=== PATIENT | male | born 1970 | race Caucasian/White ===

== ENCOUNTER 2017-08-15 06:34 | Emergency (ER) | payer OTHER ==
[~2017-08-15] VITALS: Ht 180.3 cm; Wt 96.0 kg
[~2017-08-15 06:34] MED LIST: CORNPOW11 PO; HYDR-3580 PO; TAB-TAB PO
[2017-08-15 06:39] VITALS: BP 92/55; PULSE 62; RESP 20; O2SAT 97
[2017-08-15] MEDS ORDERED: SODIUM CHLOR 0.9% 1000 ML INJ 1,000 ML IV ONE ×2 (07:19→08:45)
[2017-08-15 07:20] VITALS: TEMP 98.4
[2017-08-15 07:21] VITALS: RESP 16; O2SAT 99
[2017-08-15] MEDS ORDERED: SODIUM CHLORIDE 0.9% FLUSH 10 ML FLUSH IVF PRN (07:30)
--- NOTE | 2017-08-15 07:42 | PD ---
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 He states he decided he was given a go home and take it easy. On his way home he had a episode that got worse so he pulled over. He states he's had these before over the past couple of weeks and if he bends down and it will get better but it did not and he felt worse so he called 911. He states he also felt nauseous. The ambulance team gave him 500 cc of normal saline prior to arrival. He denies any pain or other concurrent complaints. Quality is spinning. Severity is progressive. Duration is since about 6 this morning. He states that he was having these episodes more frequently but not as intensely when he got started on a new cholesterol medication and they had stopped when he stopped that until today. He states his blood pressure in the office is usually high and his doctor has had him check it at home and it has been all over the place. [facility] Past Medical History Medical History: Denies Significant Hx Cancer: No Diabetes: No Diminished Hearing: No Hepatitis: No Hiatal Hernia: No Thyroid Disease: No Tetanus Vaccination: Unknown Influenza Vaccination: No Past Surgical History Other Surgery: Yes (RECTAL ABCESS) Social History Alcohol Use: Yes (OCC, NOT RECENTLY) Tobacco Use: No Substance Use: No Allergies-Medications (Allergen,Severity, Reaction): Coded Allergies: No Known Allergies (Unverified Adverse Reaction, Unknown, 08/15/17) Reported Meds & Prescriptions Reported Meds & Active Scripts Active Meclizine (Meclizine HCl) 25 Mg Tab 25 Mg PO TID PRN Review of Systems Except as stated in HPI: all other systems reviewed are Neg Physical Exam Narrative GENERAL: Well-nourished, well-developed patient. SKIN: Warm and dry. HEAD: Normocephalic and atraumatic. EYES: No injection or drainage. ENT: No nasal drainage noted. NECK: Supple, trachea midline. CARDIOVASCULAR: Regular rate and rhythm RESPIRATORY: No increased effort. No accessory muscle use. GASTROINTESTINAL: Abdomen nondistended. EXTREMITIES: No edema. NEUROLOGICAL: Awake and alert. Motor and sensory grossly within normal limits. Normal speech. Data Data Last Documented VS Vital Signs Date Time Temp Pulse Resp B/P (MAP) Pulse Ox O2 Delivery O2 Flow Rate FiO2 08/15/17 08:30 72 16 134/96 (109) 96 Room Air 08/15/17 07:20 98.4 Orders Orders Electrocardiogram (08/15/17 07:19) Complete Blood Count With Diff (08/15/17 07:19) Comprehensive Metabolic Panel (08/15/17 07:19) Magnesium (Mg) (08/15/17 07:19) Urinalysis - C+S If Indicated (08/15/17 07:19) Ct Brain W/O Iv Contrast(Rout) (08/15/17 07:19) Ecg Monitoring (08/15/17 07:19) Iv Access Insert/Monitor (08/15/17 07:19) Oximetry (08/15/17 07:19) Sodium Chloride 0.9% Flush (Ns Flush) (08/15/17 07:30) Sodium Chlor 0.9% 1000 Ml Inj (Ns 1000 M (08/15/17 07:19) Lactic Acid (08/15/17 07:19) Alcohol (Ethanol) (08/15/17 07:19) Sodium Chlor 0.9% 1000 Ml Inj (Ns 1000 M (08/15/17 08:45) Meclizine (Antivert) (08/15/17 08:45) Potassium Chloride Eff (K-Lyte Cl Eff) (08/15/17 09:15) Labs Laboratory Tests Test 08/15/17 07:25 08/15/17 08:30 White Blood Count 8.7 TH/MM3 Red Blood Count 4.76 MIL/MM3 Hemoglobin 14.7 GM/DL Hematocrit 42.1 % Mean Corpuscular Volume 88.4 FL Mean Corpuscular Hemoglobin 30.9 PG Mean Corpuscular Hemoglobin Concent 34.9 % Red Cell Distribution Width 13.2 % Platelet Count 272 TH/MM3 Mean Platelet Volume 7.9 FL Neutrophils (%) (Auto) 58.8 % Lymphocytes (%) (Auto) 25.9 % Monocytes (%) (Auto) 11.2 % Eosinophils (%) (Auto) 3.2 % Basophils (%) (Auto) 0.9 % Neutrophils # (Auto) 5.1 TH/MM3 Lymphocytes # (Auto) 2.3 TH/MM3 Monocytes # (Auto) 1.0 TH/MM3 Eosinophils # (Auto) 0.3 TH/MM3 Basophils # (Auto) 0.1 TH/MM3 CBC Comment DIFF FINAL Differential Comment Blood Urea Nitrogen 13 MG/DL Creatinine 0.81 MG/DL Random Glucose 96 MG/DL Total Protein 6.7 GM/DL Albumin 3.3 GM/DL Calcium Level 8.4 MG/DL Magnesium Level 2.0 MG/DL Alkaline Phosphatase 75 U/L Aspartate Amino Transf (AST/SGOT) 17 U/L Alanine Aminotransferase (ALT/SGPT) 31 U/L Total Bilirubin 0.4 MG/DL Sodium Level 141 MEQ/L Potassium Level 3.1 MEQ/L Chloride Level 109 MEQ/L Carbon Dioxide Level 23.4 MEQ/L Anion Gap 9 MEQ/L Estimat Glomerular Filtration Rate 103 ML/MIN Lactic Acid Level 1.6 mmol/L Ethyl Alcohol Level LESS THAN 3 MG/DL Urine Color YELLOW Urine Turbidity CLEAR Urine pH 8.0 Urine Specific [place] 1.013 Urine Protein NEG mg/dL Urine Glucose (UA) NEG mg/dL Urine Ketones NEG mg/dL Urine Occult Blood NEG Urine Nitrite NEG Urine Bilirubin NEG Urine Urobilinogen LESS THAN 2.0 MG/DL Urine Leukocyte Esterase NEG Urine RBC LESS THAN 1 /hpf Urine WBC 1 /hpf Urine Mucus FEW /lpf Microscopic Urinalysis Comment CULT NOT INDICATED MDM Medical Decision Making Medical Screen Exam Complete: Yes Emergency Medical Condition: Yes Medical Record Reviewed: Yes (past history confirmed) Interpretation(s) CBC & BMP Diagram 08/15/17 07:25 Total Protein 6.7, Albumin 3.3 L, Calcium Level 8.4 L, Magnesium Level 2.0, Alkaline Phosphatase 75, Aspartate Amino Transf (AST/SGOT) 17, Alanine Aminotransferase (ALT/SGPT) 31, Total Bilirubin 0.4 Last [address] 08/15/17 0719 Signed Impressions: Service Date/Time: Tuesday, August 15, 2017 07:47 - CONCLUSION: Normal examination. Codi Pineda MD Differential Diagnosis Anemia, vertigo, UTI, dehydration, intracranial.... Narrative Course Will check lab work, urinalysis, CT brain and dose with IV fluids. Patient is hypotensive here without tachycardia or fever. labs wnl except mild hypokalemia which was replaced, given meclizine, Patient denies any new complaints and states that they are feeling better. Patient happy with care, all questions answered. Patient knows that follow up is incumbent on them and to return to the emergency room immediately if new or worsening symptoms develop. Patient given strict return precautions, vitals reviewed and are normal, agrees to further workup as an outpatient. patient will have ride come get him Diagnosis Primary Impression: Dizziness Additional Impression: Hypokalemia Patient Instructions: General Instructions Additional Instructions: return as needed, keep hydrated, follow with primary next 1-2 days for recheck, keep blood pressure log, don't drive while dizzy Med/Other Pt SpecificInfo: Prescription(s) given Scripts Meclizine (Meclizine) 25 Mg Tab 25 MG PO TID Y for VERTIGO, #15 TAB 0 Refills Prov: Samira Bone MD 08/15/17 Disposition: 01 DISCHARGE HOME Condition: Stable Samira Bone MD Aug 15, 2017 07:42
[2017-08-15 07:50] LABS: AUTOMATED NEUTROPHIL # 5.1 TH/MM3 (1.8-7.7); BASOPHIL # 0.1 TH/MM3 (0-0.2); BASOPHIL % 0.9 % (0.0-2.0); EOSINOPHIL # 0.3 TH/MM3 (0-0.4); EOSINOPHIL % 3.2 % (0.0-4.0); HEMATOCRIT 42.1 % (39.0-51.0); HEMOGLOBIN 14.7 GM/DL (13.0-17.0); LYMPH % 25.9 % (9.0-44.0); LYMPHOCYTE # 2.3 TH/MM3 (1.0-4.8); MEAN CELL VOLUME 88.4 FL (80.0-100.0); MEAN CORPUSCULAR HEMOGLOBIN 30.9 PG (27.0-34.0); MEAN CORPUSCULAR HGB CONC 34.9 % (32.0-36.0); MEAN PLATELET VOLUME 7.9 FL (7.0-11.0); MONO % 11.2 % (0.0-8.0); NEUT % 58.8 % (16.0-70.0); PLATELET COUNT 272 TH/MM3 (150-450); RED BLOOD COUNT 4.76 MIL/MM3 (4.50-5.90); RED CELL DISTRIBUTION WIDTH 13.2 % (11.6-17.2); WHITE BLOOD COUNT 8.7 TH/MM3 (4.0-11.0)
--- NOTE | 2017-08-15 07:57 | RADRPT ---
EXAM DATE/TIME: 08/15/2017 07:47 [place] COMPARISON: No previous studies available for comparison. INDICATIONS : Dizziness today. RADIATION DOSE: 36.06 CTDIvol (mGy) MEDICAL HISTORY : None SURGICAL HISTORY : None. ENCOUNTER: Initial ACUITY: 1 day PAIN SCALE: 0/10 LOCATION: Bilateral head TECHNIQUE: Multiple contiguous axial images were obtained of the head. Using automated exposure control and adj ustment of the mA and/or kV according to patient size, radiation dose was kept as low as reasonably a chievable to obtain optimal diagnostic quality images. DICOM format image data is available electro nically for review and comparison. FINDINGS: CEREBRUM: The ventricles are normal for age. No evidence of midline shift, mass lesion, hemorrhage or acute in farction. No extra-axial fluid collections are seen. POSTERIOR FOSSA: The cerebellum and brainstem are intact. The 4th ventricle is midline. The cerebellopontine angle i s unremarkable. EXTRACRANIAL: The visualized portion of the orbits is intact. SKULL: The calvaria is intact. No evidence of skull fracture. CONCLUSION: Normal examination. Codi Pineda MD on August 15, 2017 at 7:54 Board Certified Radiologist. This report was verified electronically.
[2017-08-15 08:00] VITALS: BP 104/59; PULSE 86; RESP 16; O2SAT 96
[2017-08-15 08:13] LABS: ALBUMIN 3.3 GM/DL (3.4-5.0); AST (GOT) 17 U/L (15-37); BICARBONATE 23.4 MEQ/L (21.0-32.0); BLOOD UREA NITROGEN 13 MG/DL (7-18); CALCIUM 8.4 MG/DL (8.5-10.1); CHLORIDE 109 MEQ/L (98-107); CREATININE 0.81 MG/DL (0.60-1.30); GLOMERULAR FILTRATION RATE 103 ML/MIN (>89); GLUCOSE,RANDOM 96 MG/DL (74-106); SODIUM (NA) 141 MEQ/L (136-145)
[2017-08-15 08:16] LABS: ALKALINE PHOSPHATASE 75 U/L (45-117); ALT (GPT) 31 U/L (12-78); TOTAL BILIRUBIN ADULT 0.4 MG/DL (0.2-1.0); TOTAL PROTEIN 6.7 GM/DL (6.4-8.2)
[2017-08-15 08:30] VITALS: BP 134/96; PULSE 72; RESP 16; O2SAT 96
[2017-08-15] MEDS ORDERED: MECLIZINE HCL 25 MG TAB PO ONE (08:45)
[2017-08-15 09:02] LABS: BILIRUBIN, URINE NEG (NEG); BLOOD, URINE NEG (NEG); GLUCOSE,URINE NEG (NEG); KETONE, URINE NEG (NEG); MUCUS URINE FEW /lpf (OCC); NITRITE,URINE NEG (NEG); URINE COLOR YELLOW (YELLW/STRAW); URINE LEUKOCYTE ESTERASE NEG (NEG)
[2017-08-15] MEDS ORDERED: POTASSIUM CHLORIDE 25 MEQ EFFERVESCENT TAB PO ONE (09:15)
[2017-08-15] MEDS ORDERED: MECL-62 PO (09:33)
--- NOTE | 2017-08-15 12:06 | EKG ---
Date Performed: 08/15/2017 Time Performed: 06:54:29 PTAGE: 47 years EKG: SINUS BRADYCARDIA MODERATE INTRAVENTRICULAR CONDUCTION DELAY BORDERLINE ECG NO PREVIOUS TRACING DOCTOR: Oscar Santana Interpretating Date/Time 08/15/2017 12:04:38
== END 2017-08-15 10:30 | disposition home or self-care (01) ==
LOC: NEPC 06:34
DX: R42 Dizziness and giddiness (principal); E87.6 Hypokalemia; R00.1 Bradycardia, unspecified; R11.0 Nausea
CPT/HCPCS: 70450; 80053; 80307; 81001; 83605; 83735; 85025; 93005; 96360; 99285; J7030